=== PATIENT | male | born 1975 | race Hispanic/Latino ===

== ENCOUNTER 2017-12-14 02:08 | Emergency (ER) | payer OTHER ==
[2017-12-14] MEDS ORDERED: METHYLPREDNISOLONE SOD SUCC 40MG/ML 1ML ONE (02:23)
[2017-12-14] MEDS ORDERED: DEXAMETHASONE SOD PHOSPHATE 4 MG/ML 1ML VIAL ONE (02:23)
== END 2017-12-14 03:06 | disposition home or self-care (01) ==
LOC: EDH 02:08
DX: B34.9 Viral infection, unspecified (principal); Z90.49 Acquired absence of other specified parts of digestive tract; Z72.0 Tobacco use
CPT/HCPCS: 93005; 96372 ×2; 99284; J1100; J2920